=== PATIENT | female | born 1975 | race Caucasian/White ===

== ENCOUNTER → 2019-11-24 16:00 | Outpatient (BNVA) | payer MEDICAID, SELFPAY | PROVIDERS: Visit Provider Nurse Practitioner Family | DX: Z20.828 Contact with and (suspected) exposure to other viral communicable diseases (principal) | CPT/HCPCS: 87635 ==

== ENCOUNTER → 2021-03-20 11:34 | Outpatient (BNVA) | payer BC, MEDICAID, SELFPAY | PROVIDERS: Visit Provider Nurse Practitioner Family | DX: J02.9 Acute pharyngitis, unspecified (principal) | CPT/HCPCS: 87880 ==

== ENCOUNTER → 2023-02-12 12:28 | Outpatient (BNVA) | payer BC, SELFPAY | PROVIDERS: Visit Provider Psychiatry & Neurology Psychiatry | DX: Z79.899 Other long term (current) drug therapy (principal) | CPT/HCPCS: 80053; 80061; 83036; 84443; 85025 ==

== ENCOUNTER 2024-05-06 19:11 | Emergency (ER) | payer BC, MEDICAID, SELFPAY ==
[2024-05-06 19:20] VITALS: BP 115/73; PULSE 96; RESP 14; TEMP 36.3; O2SAT 96; BMI 29.4
[2024-05-06 19:36] LABS: Basophils # 0.1 10^3/uL (0.0-0.1); Basophils % 1.2 %; Eosinophils # 0.3 10^3/uL (0.0-0.8); Hematocrit 41.7 % (36-47); Lymphocytes # 3.4 10^3/uL (0.8-4.8); Lymphocytes % 31.7 %; Mean Corpuscular HGB Conc 33.8 g/dL (30-55); Mean Corpuscular Hemoglobin 30.8 pg (27-33); Mean Platelet Volume 9.8 fL (7.4-10.4); Monocytes # 0.7 10^3/uL (0.2-0.9); Monocytes % 6.2 %; Neutrophils # 6.17 10^3/uL (1.8-7.7); Neutrophils % 57.7 %; Nucleated Red Blood Cells % 0 %; Platelet Count 233 10^3/cmm (157-399); Red Blood Count 4.58 10^6/uL (3.85-5.65); Red Cell Distribution Width 12.8 % (12.1-15.1); White Blood Count 10.69 10^3/uL (3.29-11.43)
[2024-05-06 20:04] LABS: Alanine Aminotransferase 28 U/L (0-33); Albumin Level 3.9 g/dL (3.5-5.2); Alkaline Phosphatase 86 U/L (35-105); Anion Gap 13.2 (5-19); Aspartate Amino Transferase 22 U/L (0-32); Blood Urea Nitrogen 11 mg/dL (6-20); Carbon Dioxide 24 mmol/L (22-29); Chloride 102 mmol/L (98-107); Creatinine Clr Calc Pharmacy 91.0096; Globulin 2.7 g/dL (1.3-4.6); Glomerular Filtration Rate 76.9 mL/min (90-130); Glucose 178 mg/dL (65-115); Osmolality Calculated 286 mOsm/kg (285-295); Potassium 3.2 mmol/L (3.5-5.1); Sodium 136 mmol/L (136-145); Total Bilirubin 0.3 mg/dL (0.15-1.2); Total Protein 6.6 g/dL (6.6-8.7)
[2024-05-06 20:46] VITALS: BP 120/74; PULSE 84; O2SAT 98
--- NOTE | 2024-05-06 21:11 | W.ED.GENADLT ---
HPI - General Adult General: Chief complaint: General Medical Stated complaint: sudden hands tingling since 1 pm Time Seen by Provider: 05/06/24 20:48 Source: patient Mode of arrival: ambulatory Limitations: no limitations History of Present Illness: Patient is a 48-year-old female who presents the emergency department complaining of bilateral hand tingling beginning this afternoon at 1300. Patient states she was putting together boxes at [employer] when the symptoms started, associated with pain. States that it is intermittent it will get better but then seemingly get worse. States she is currently having the symptoms at this time. Also notes a history of bilateral carpal tunnel release surgery. Denies any other systemic symptoms. No neck pain or history of cervical stenosis. She has not taken any medications for this. She does have psychiatric history including generalized anxiety disorder, PTSD, and major depressive disorder. However denies any new medications. Vitals within normal limits at this time. MD complaint: Hand tingling and pain Onset (ago): hour(s) Pain Consistency: intermittent Relieving factors: none Exacerbating factors: none Associated symptoms: Deny chest pain, dyspnea, headache(s), nausea, rash, palpitations or vomiting Treatments prior to arrival: none Related Data Home Medications ?Medication ?Instructions ?Recorded ?Confirmed estradiol 1 mg tablet 1 mg PO DAILY 04/03/19 02/11/24 nifedipine 30 mg tablet,extended 30 mg PO DAILY 04/03/19 02/11/24 release omeprazole 20 mg capsule,delayed 20 mg PO DAILY 04/03/19 02/11/24 release glimepiride 4 mg tablet (Amaryl) 4 mg PO DAILY 01/23/20 02/11/24 sitagliptin phosphate 100 mg 100 mg PO DAILY 01/23/20 02/11/24 tablet (Januvia) atorvastatin 10 mg tablet (Lipitor) 10 mg PO DAILY 12/27/20 02/11/24 empagliflozin 25 mg tablet 25 mg PO DAILY 08/22/21 02/11/24 (Jardiance) magnesium oxide 200 mg PO DAILY 03/08/22 02/11/24 dulaglutide 0.75 mg/0.5 mL mg SUBCUT .weekly 06/05/22 02/11/24 [facility] galcanezumab-gnlm 120 mg/mL 120 mg SUBCUT .monthly 12/02/23 02/11/24 subcutaneous pen injector (Emgality Pen) meloxicam 7.5 mg tablet 7.5 mg PO DAILY 02/11/24 02/11/24 Previous Rx's ?Medication ?Instructions ?Recorded albuterol sulfate 90 mcg/actuation 2 puff inhalation Q6H PRN 02/07/23 aerosol inhaler shortness of breath or wheezing #8.5 grams levofloxacin 750 mg tablet 750 mg PO DAILY #7 tabs 02/07/23 hydroxyzine HCl 25 mg tablet 25 - 50 mg (1 - 2 x 25 mg) PO BID 02/12/23 PRN itching or anxiety #60 tabs bupropion HCl 450 mg 24 hr tablet, See Rx Instructions .Route 12/02/23 extended release .COMPLEX #30 tabs buspirone 5 mg tablet 5 mg PO BID PRN anxiety #60 tabs 12/02/23 escitalopram oxalate 20 mg tablet See Rx Instructions .Route 05/01/24 .COMPLEX #30 tabs prednisone 20 mg tablet 40 mg (2 x 20 mg) PO ONCE 5 days 05/06/24 #10 tabs Allergies Allergy/AdvReac Type Severity Reaction Status Date / Time aspirin Allergy Unknown unk Verified 05/06/24 19:25 cephalexin (From Keflex) Allergy Unknown unk Verified 05/06/24 19:25 codeine Allergy Unknown unk Verified 05/06/24 19:25 methylprednisolone Allergy Unknown unk Verified 05/06/24 19:25 morphine Allergy Unknown unknown Verified 05/06/24 19:25 Penicillins Allergy Unknown unk Verified 05/06/24 19:25 terbinafine Allergy Unknown unk Verified 05/06/24 19:25 metformin Allergy algy-rash Verified 05/06/24 19:25 Review of Systems General: Reports: 10 or more systems reviewed and unremarkable except in HPI and below Const: Denies: fever(s), chills or fatigue Eyes: Denies: change in vision ENMT: Denies: throat pain, ear or mastoid pain or nasal discharge Card: Denies: chest pain, palpitations, swelling of feet/ankles or lightheadedness Resp: Denies: dyspnea, productive cough or wheezing GI: Denies: abdominal pain, nausea, vomiting, diarrhea or constipation : Denies: flank pain, difficulty voiding, dysuria or urinary frequency Musc: Reports: extremity pain (Bilateral hands); Denies: neck pain, back pain or joint pain Skin/Breast: Denies: rash Neuro: Reports: sensory changes (Tingling in bilateral hands); Denies: headache(s), numbness in extremities or weakness in extremities PFSH ED PFSH: Medical History Psychiatric care Smoking Nicotine dependence, unspecified, uncomplicated Chronic post-traumatic stress disorder Generalized anxiety disorder Major depressive disorder, recurrent severe without psychotic features Social History Smoking and tobacco/nicotine status: current every day tobacco/nicotine user cigarettes Packs smoked per day: 1 Female Reproductive History: Spontaneous abortions: No Physical Exam Const: COMMON NORMALS: no acute distress, patient oriented x3 and no limitations GENERAL APPEARANCE: cooperative, comfortable and well developed ORIENTATION/CONSCIOUSNESS: Yes awake, Yes oriented to person, Yes oriented to place and Yes oriented to time HENMT: COMMON NORMALS: normocephalic, atraumatic and hearing grossly normal bilaterally HEAD & SCALP: normocephalic and atraumatic Eye: COMMON NORMALS: Equal, round and reactive pupils present, EOMs intact bilaterally and conjunctivae normal CONJUNCTIVA: Yes conjunctivae normal PUPIL: Yes Equal, round and reactive pupils present Neck/C-Spine: COMMON NORMALS: full ROM, supple and no JVD Resp: COMMON NORMALS: normal respiratory effort, No retractions, No use of accessory muscles and clear to auscultation bilaterally AUSCULTATION: clear to auscultation bilaterally Cardio: COMMON NORMALS: no JVD, regular rate, regular rhythm, No clicks present (Cardio), No murmurs present (Cardio) and No rub (Cardio) RATE: regular rate RHYTHM: regular rhythm Extremity: COMMON NORMALS: normal to inspection, full ROM and capillary refill normal NARRATIVE EXTREMITY EXAM: Bilateral radial pulse palpable. No swelling to the upper extremities. Tenderness to palpation of the palms, no skin color changes. No distal neurovascular symptoms. Range of motion intact bilaterally. Neuro: COMMON NORMALS: patient oriented x3, CN's II-XII intact bilaterally, moves all extremities, no focal motor deficits and no sensory deficits noted SENSORIUM/ORIENTATION: Yes oriented to person, Yes oriented to place and Yes oriented to time Skin: COMMON NORMALS: no rashes or lesions noted GENERAL SKIN EXAM: no rashes or lesions noted Course Vital Signs: Vital signs: Vital Signs Temperature 97.4 F L 05/06/24 19:20 Pulse Rate 84 05/06/24 20:46 Respiratory Rate 14 05/06/24 19:20 Blood Pressure 120/74 05/06/24 20:46 Pulse Oximetry 98 05/06/24 20:46 Oxygen Delivery Me thod Room Air 05/06/24 20:46 MDM - General Adult Medical Decision Making Patient complaining of bilateral hand tingling and pain, exam overall unremarkable I did not find any concerning findings. Her lab work was all normal, kidney function normal. She does not report any neck pain or trauma, however did have a history of bilateral carpal tunnel release. Unknown exactly what is causing the symptoms, they have been overall intermittent but mild. Will treat with steroids and have her monitor her condition and follow-up with her regular doctor for reevaluation, I do not suspect any systemic causes of this but ultimately did give return precautions, of which she verbalized understanding. Lab Data 05/06/24 19:30 05/06/24 19:30 Laboratory Results WBC 10.69 10^3/uL (3.29-11.43) 05/06/24 19:30 RBC 4.58 10^6/uL (3.85-5.65) 05/06/24 19:30 Hgb 14.10 g/dL (11.27-16.99) 05/06/24 19:30 Hct 41.7 % (36-47) 05/06/24 19:30 MCV 91.0 fl (85-98) 05/06/24 19:30 MCH 30.8 pg (27-33) 05/06/24 19:30 MCHC 33.8 g/dL (30-55) 05/06/24 19:30 RDW 12.8 % (12.1-15.1) 05/06/24 19:30 Plt Count 233 10^3/cmm (157-399) 05/06/24 19:30 MPV 9.8 fL (7.4-10.4) 05/06/24 19:30 Neut % (Auto) 57.7 % 05/06/24 19:30 Lymph % (Auto) 31.7 % 05/06/24 19:30 Jennings % (Auto) 6.2 % 05/06/24 19:30 Eos % (Auto) 3.0 % 05/06/24 19:30 Baso % (Auto) 1.2 % 05/06/24 19:30 Neut # (Auto) 6.17 10^3/uL (1.8-7.7) 05/06/24 19:30 Lymph # (Auto) 3.4 10^3/uL (0.8-4.8) 05/06/24 19:30 Jennings # (Auto) 0.7 10^3/uL (0.2-0.9) 05/06/24 19:30 Eos # (Auto) 0.3 10^3/uL (0.0-0.8) 05/06/24 19: Baso # (Auto) 0.1 10^3/uL (0.0-0.1) 05/06/24 19: Nucleated RBC % (auto) 0 % 05/06/24 19: Nucleated RBCs # 0.0 /100WBC 05/06/24 19:30 Sodium 136 mmol/L (136-145) 05/06/24 19: Potassium 3.2 mmol/L (3.5-5.1) L 05/06/24 19: Chloride 102 mmol/L (98-107) 05/06/24 19: Carbon Dioxide 24 mmol/L (22-29) 05/06/24 19: Anion Gap 13.2 (5-19) 05/06/24 19: BUN 11 mg/dL (6-20) 05/06/24 19: Creatinine 0.8 mg/dL (0.5-0.9) 05/06/24 19: GFR Calculation 76.9 mL/min (90-130) L 05/06/24 19: Glucose 178 mg/dL (65-115) H 05/06/24 19: Calculated Osmolality 286 mOsm/kg (285-295) 05/06/24 19: Calcium 9.0 mg/dL (8.5-10.5) 05/06/24 19: Total Bilirubin 0.3 mg/dL (0.15-1.2) 05/06/24: AST 22 U/L (0-32) 03/12/25 19:30 ALT 28 U/L (0-33) 05/06/24 19:30 Alkaline Phosphatase 86 U/L (35-105) 05/06/24 19:30 Total Protein 6.6 g/dL (6.6-8.7) 05/06/24 19:30 Albumin 3.9 g/dL (3.5-5.2) 05/06/24 19:30 Globulin 2.7 g/dL (1.3-4.6) 05/06/24 19:30 No radiology studies performed this visit Discharge Plan Discharge Patient Disposition: Home Clinical Impression: Hand tingling Condition: Stable Prescriptions: New prednisone 20 mg tablet 40 mg PO ONCE 5 Days Qty: 10 0RF No Action atorvastatin [Lipitor] 10 mg tablet 10 mg PO DAILY estradiol 1 mg tablet 1 mg PO DAILY nifedipine 30 mg tablet extended release 30 mg PO DAILY omeprazole 20 mg capsule,delayed release(DR/EC) 20 mg PO DAILY Januvia 100 mg tablet 100 mg PO DAILY glimepiride [Amaryl] 4 mg tablet 4 mg PO DAILY Jardiance 25 mg tablet 25 mg PO DAILY Trulicity 0.75 mg/0.5 mL pen injector SUBCUT .weekly albuterol sulfate 90 mcg/actuation HFA aerosol inhaler 2 puff inhalation Q6H PRN (Reason: shortness of breath or wheezing) Qty: 8.5 0RF levofloxacin 750 mg tablet 750 mg PO DAILY Qty: 7 0RF Emgality Pen 120 mg/mL pen injector 120 mg SUBCUT .monthly bupropion HCl 450 mg tablet extended release 24 hr See Rx Instructions .ROUTE .COMPLEX Qty: 30 4RF Dose Instruction: TAKE ONE TABLET BY MOUTH EVERY MORNING Rx Instructions: TAKE ONE TABLET BY MOUTH EVERY MORNING buspirone 5 mg tablet 5 mg PO BID PRN (Reason: anxiety) Qty: 60 3RF meloxicam 7.5 mg tablet 7.5 mg PO DAILY magnesium oxide 200 mg magnesium tablet 200 mg PO DAILY hydroxyzine HCl 25 mg tablet 25 - 50 mg PO BID PRN (Reason: itching or anxiety) Qty: 60 4RF escitalopram oxalate 20 mg tablet See Rx Instructions .ROUTE .COMPLEX Qty: 30 4RF Dose Instruction: TAKE ONE TABLET BY MOUTH EVERY DAY Rx Instructions: TAKE ONE TABLET BY MOUTH EVERY DAY Discharge Orders: Discharge ED (Routine); Ordered 05/06/24 Ordered By: Panfilo Kuhn Activity Restrictions/Additional Instructions: Take the prednisone. Follow-up with primary care for reevaluation. Tylenol/ibuprofen for pain. Rest the extremities. Return with any new or worsening. 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
[2024-05-06] MEDS: dexamethasone 10 mg/mL INJ IM (21:26)
[2024-05-06 22:51] VITALS: BP 124/77; PULSE 77; O2SAT 96
== END 2024-05-06 21:50 | disposition home or self-care (01) ==
PROVIDERS: Emergency Medicine; Emergency Provider Physician Assistant
DX: R20.2 Paresthesia of skin (principal); Z79.85 Long-term (current) use of injectable non-insulin antidiabetic drugs; F17.210 Nicotine dependence, cigarettes, uncomplicated
CPT/HCPCS: 36415; 80053; 85025; 96372; 99284; J1100

== ENCOUNTER → 2024-09-22 15:54 | Outpatient (BNVA) | payer SELFPAY | PROVIDERS: Visit Provider Nurse Practitioner | DX: M19.012 Primary osteoarthritis, left shoulder (principal); M25.462 Effusion, left knee | CPT/HCPCS: 73030; 73562 ==